=== PATIENT | female | born 1975 | race Two or more races ===

== ENCOUNTER 2019-12-31 08:22 | Emergency (ER) | payer MEDICAID ==
[~2019-12-31] VITALS: Ht 165.1 cm; Wt 76.7 kg
--- NOTE | 2019-12-31 08:31 | NUR ---
came in for lower back pain since last night, denies injury/trauma, 02/03 ps, to ER bed 10, hooked to monitor, changed to hosp gown, warm blanklet provided, patient aao X 4, breathing even and unlabored, awaiting md nathan.
--- NOTE | 2019-12-31 08:40 | NUR ---
DR LYNCH AT BEDSIDE
[2019-12-31] MEDS ORDERED: KETOROLAC TROMETHAMINE INJ 30 MG/ML VIAL ONE (08:44)
[2019-12-31] MEDS ORDERED: CYCLOBENZAPRINE 10 MG TABLET ONE (08:50)
[2019-12-31] MEDS: LIDOCAINE 5% (PATCH) 1 EA PATCH TP SCH (08:58)
[2019-12-31] MEDS: CYCLOBENZAPRINE 10 MG TABLET PO ONE (08:58)
[2019-12-31] MEDS: KETOROLAC TROMETHAMINE INJ 30 MG/ML VIAL IM ONE (09:07)
[2019-12-31 09:48] VITALS: BP 131/91
--- NOTE | 2019-12-31 09:48 | NUR ---
Patient discharged to home in stable condition. Written and verbal after care instructions given. Patient verbalizes understanding of instruction.
== END 2019-12-31 09:49 | disposition home or self-care (01) ==
LOC: ER 08:26
DX: S39.012A Strain of muscle, fascia and tendon of lower back, initial encounter (principal); X58.XXXA Exposure to other specified factors, initial encounter; Y93.89 Activity, other specified; Y92.89 Other specified places as the place of occurrence of the external cause; Y99.8 Other external cause status
CPT/HCPCS: 84703; 96372; 99283; J1885